=== PATIENT | male | born 1950 | race Caucasian/White ===

== ENCOUNTER → 2021-09-27 08:05 | Outpatient (BNVA) | payer SELFPAY | PROVIDERS: Family Provider General Practice; PCP Family Medicine; Visit Provider Nurse Practitioner Family | DX: N41.9 Inflammatory disease of prostate, unspecified (principal); R36.1 Hematospermia | CPT/HCPCS: 81003 ==

== ENCOUNTER → 2021-10-26 08:58 | Outpatient (BNVA) | payer MEDICARE, SELFPAY | PROVIDERS: Family Provider General Practice; PCP Family Medicine; Visit Provider Urology | DX: R36.1 Hematospermia (principal); Z80.42 Family history of malignant neoplasm of prostate; Z12.5 Encounter for screening for malignant neoplasm of prostate | CPT/HCPCS: 81003; 99213 ==

== ENCOUNTER → 2022-04-23 09:50 | Outpatient (BNVA) | payer MEDICARE, SELFPAY | PROVIDERS: PCP Family Medicine; Visit Provider Urology | DX: R36.1 Hematospermia (principal); Z80.42 Family history of malignant neoplasm of prostate | CPT/HCPCS: 81003; 99212 ==

== ENCOUNTER → 2023-01-22 13:10 | Outpatient (BNVA) | payer MEDICARE, SELFPAY | PROVIDERS: PCP Family Medicine; Referring Provider Family Medicine; Visit Provider Dermatology | DX: L57.0 Actinic keratosis (principal); L82.1 Other seborrheic keratosis; D23.39 Other benign neoplasm of skin of other parts of face; L81.4 Other melanin hyperpigmentation; L21.8 Other seborrheic dermatitis; D23.72 Other benign neoplasm of skin of left lower limb, including hip | CPT/HCPCS: 17000; 17003; 99204 ==

== ENCOUNTER 2023-04-21 06:53 | Outpatient (CLI) | payer MEDICARE, SELFPAY ==
--- NOTE | 2023-04-21 07:12 | CT_ITS ---
WS: [id number] CT PARANASAL SINUSES HISTORY: CHRONIC SINUSITIS TECHNIQUE: Contiguous 2.5 mm axial images obtained through the sinuses. Images are reconstructed in s agittal and coronal planes. All CT scans at [facility] use at least one of these dose optimiz ation techniques: automated exposure control; mA and/or kV adjustment per patient size (includes targ eted exams where dose is matched to clinical indication); or iterative reconstruction. DLP: 343.94 mGy.cm COMPARISON: None available. Frontal sinuses: Normal. Sphenoid sinus: Normal. Ethmoid sinuses: Normal. Maxillary sinus: There is a small amount of mucoperiosteal thickening at the floor of the RIGHT maxil vilma sinus. No air-fluid levels. No bone destruction or expansion of the sinus cavity. Ostiomeatal unit: Widely patent. No obstruction. There is mild deviation of the nasal septum to the RIGHT with a tiny bony spur. No orbit abnormality. Visualized mastoid air cells are clear. IMPRESSION: 1. Very minimal mucoperiosteal thickening along the floor the RIGHT maxillary sinus. No air-fluid lev els. The remaining sinuses are clear. 2. Normal ostiomeatal units. No obstruction.
== END 2023-04-21 06:54 | disposition home or self-care (01) ==
LOC: RAD 06:54
PROVIDERS: PCP Family Medicine; Visit Provider Family Medicine
DX: J32.9 Chronic sinusitis, unspecified (principal)
CPT/HCPCS: 70486

== ENCOUNTER → 2023-07-23 13:31 | Outpatient (BNVA) | payer MEDICARE, SELFPAY | PROVIDERS: PCP Family Medicine; Visit Provider Nurse Practitioner Family | DX: L57.0 Actinic keratosis (principal); L82.1 Other seborrheic keratosis; D23.39 Other benign neoplasm of skin of other parts of face; L81.4 Other melanin hyperpigmentation; L21.8 Other seborrheic dermatitis; D18.01 Hemangioma of skin and subcutaneous tissue; D23.72 Other benign neoplasm of skin of left lower limb, including hip; L81.3 Cafe au lait spots | CPT/HCPCS: 17000; 99214 ==

== ENCOUNTER → 2024-01-21 10:33 | Outpatient (BNVA) | payer MEDICARE, SELFPAY | PROVIDERS: PCP Family Medicine; Visit Provider Nurse Practitioner Family | DX: L82.1 Other seborrheic keratosis (principal); D23.39 Other benign neoplasm of skin of other parts of face; L81.4 Other melanin hyperpigmentation; L21.8 Other seborrheic dermatitis; D18.01 Hemangioma of skin and subcutaneous tissue | CPT/HCPCS: 17000; 99214 ==

== ENCOUNTER → 2024-07-19 08:44 | Outpatient (BNVA) | payer MEDICARE, SELFPAY | PROVIDERS: PCP Family Medicine; Visit Provider Nurse Practitioner Family | DX: L82.1 Other seborrheic keratosis (principal); D23.39 Other benign neoplasm of skin of other parts of face; L81.4 Other melanin hyperpigmentation; D18.01 Hemangioma of skin and subcutaneous tissue; L56.5 Disseminated superficial actinic porokeratosis (DSAP) | CPT/HCPCS: 17000; 99213 ==

== ENCOUNTER → 2025-03-14 09:39 | Outpatient (BNVA) | payer MEDICARE, SELFPAY | PROVIDERS: PCP Family Medicine; Visit Provider Nurse Practitioner Family | DX: L82.1 Other seborrheic keratosis (principal); L82.0 Inflamed seborrheic keratosis; L53.8 Other specified erythematous conditions; R58 Hemorrhage, not elsewhere classified; R20.8 Other disturbances of skin sensation; Z78.9 Other specified health status; L29.89 Other pruritus; B07.8 Other viral warts; L57.0 Actinic keratosis | CPT/HCPCS: 17000; 17110; 99213 ==